=== PATIENT | male | born 1990 | race Two or more races ===

== ENCOUNTER 2019-09-17 11:35 | Emergency (ER) | payer OTHER, MEDICAID ==
[~2019-09-17] VITALS: Ht 175.3 cm; Wt 77.1 kg
[2019-09-17 11:46] VITALS: BP 128/76
== END 2019-09-17 14:24 | disposition home or self-care (01) ==
LOC: ER 11:35
DX: S33.5XXA Sprain of ligaments of lumbar spine, initial encounter (principal); V43.52XA Car driver injured in collision with other type car in traffic accident, initial encounter; Y93.89 Activity, other specified; Y92.89 Other specified places as the place of occurrence of the external cause; Y99.8 Other external cause status
CPT/HCPCS: 72100